=== PATIENT | male | born 1940 | race Caucasian/White ===

== ENCOUNTER → 2016-08-29 | Outpatient (CLI) | payer MEDICARE | LOC: MW.CHFP 08:00 | DX: E53.9 Vitamin B deficiency, unspecified (principal) | CPT/HCPCS: 96372; J3420 ==

== ENCOUNTER → 2016-10-02 | Outpatient (CLI) | payer MEDICARE ==
[2016-10-02 10:23] LABS: CHLORIDE,CL 105 mmol/L (98-110); SODIUM,NA 140 mmol/L (136-146)
--- NOTE | 2016-10-02 10:35 | CR ---
EXAMINATION: Two-view chest (PA and Lateral views). HISTORY: Pneumonia. Comparison: 08/03/2013. FINDINGS: The trachea is midline. The cardiomediastinal silhouette is within normal limits. No pulmonary infil trates, effusions or pneumothorax. Mild stable bibasilar interstitial prominence. Mild aortic calcif ications noted. Degenerative changes are noted within the thoracic spine. IMPRESSION: No acute cardiopulmonary process.
== END | disposition home or self-care (01) ==
LOC: MW.CHFP 09:19
PROVIDERS: ATTEND Emergency Medicine
DX: J18.9 Pneumonia, unspecified organism (principal); Z12.5 Encounter for screening for malignant neoplasm of prostate; E11.42 Type 2 diabetes mellitus with diabetic polyneuropathy; R73.03 Prediabetes; E03.9 Hypothyroidism, unspecified; I10 Essential (primary) hypertension; E78.00 Pure hypercholesterolemia, unspecified; M10.9 Gout, unspecified; R61 Generalized hyperhidrosis; E53.8 Deficiency of other specified B group vitamins; E53.9 Vitamin B deficiency, unspecified
CPT/HCPCS: 36415; 71020; 80053; 80061; 83036; 84443; 84550; 85025; 96372; 99214; G0103; J3420

== ENCOUNTER → 2016-11-01 | Outpatient (CLI) | payer MEDICARE | LOC: MW.CHFP 08:00 | PROVIDERS: ATTEND Emergency Medicine | DX: E53.8 Deficiency of other specified B group vitamins (principal) | CPT/HCPCS: 96372; J3420 ==